=== PATIENT | male | born 2000 | race Caucasian/White ===

== ENCOUNTER 2021-03-03 14:09 | Emergency (ER) | payer OTHER, SELFPAY ==
[2021-03-03 15:36] VITALS: BP 155/92; PULSE 91; RESP 16; TEMP 36.8; O2SAT 98; BMI 26.4
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
[2021-03-03 16:46] VITALS: BP 168/84; PULSE 91; RESP 16; O2SAT 98
--- NOTE | 2021-03-03 16:48 | PC.NURSE ---
REVIEWED DISCHARGE INSTRUCTIONS WITH PATIENT, ADVISED TO FOLLOW UP IF PAIN CONTINUES, PATIENT AMBULATED FROM THE ED
== END 2021-03-03 16:49 | disposition home or self-care (01) ==
PROVIDERS: Emergency Provider Physician Assistant; PCP Nurse Practitioner Family
DX: S39.012A Strain of muscle, fascia and tendon of lower back, initial encounter (principal); V89.2XXA Person injured in unspecified motor-vehicle accident, traffic, initial encounter; M54.2 Cervicalgia
CPT/HCPCS: 72072; 72100; 99282